=== PATIENT | female | born 1985 | race Hispanic/Latino ===

== ENCOUNTER → 2023-12-27 | Emergency (ER) | payer SELFPAY ==
--- NOTE | 2023-12-27 19:57 | RAD REPORT ---
EXAM DESCRIPTION: US - Transvaginal OB - 12/27/2023 7:37 pm CLINICAL HISTORY: with vaginal bleeding COMPARISON: None FINDINGS: The uterus measures 12 x 5 x 7 centimeters. A normal appearing gestational sac is present within the endometrium. Within this is a yolk sac and pole with a crown-rump length 2.5 centi meters. Cardiac activity 171 beats per minute 1.1 cm subchorionic bleed Right and left ovary not seen secondary to overlying bowel gas The right and left adnexa are unremarkable No significant free fluid is seen. IMPRESSION: Single live intrauterine with an estimated gestational age 9 weeks 2 days ARNIE 07/29/2024
[2023-12-27 19:59] LABS: Absolute Lymphocytes (CBC) 2.6 K/uL (0.7-4.9); Hematocrit 38.5 % (36.0-45.0); Lymphocytes % 25.1 % (15.3-44.8); MCV 91.6 fL (80-100); MPV 10.3 fL (7.6-11.3); Platelets 181 thou/uL (152-406); RBC Red Blood Cell Count 4.21 M/uL (3.86-4.86)
[2023-12-27 20:33] LABS: Potassium 3.8 mEq/L (3.5-5.1)
--- NOTE | 2023-12-27 21:05 | ER ---
Nurse's Notes [facility] Name: Tiffanie Aguilera Age: 38 yrs Sex: Female : 1985 Arrival Date: 12/27/2023 Time: 17:55 Bed 12 Private MD: Diagnosis: subchorionic hemorrhage Presentation: 12/27 18:17 Chief complaint: Patient states: Approximately 6 weeks , had positive home nj1 test. Has vaginal bleeding, onset 1 hour ago. Denies pain. Coronavirus screen: Vaccine status: Patient reports receiving the 2nd dose of the covid vaccine. Ebola Screen: Patient denies travel to an Ebola-affected area in the 21 days before illness onset. Initial Sepsis Screen: Does the patient meet any 2 criteria? No. Patient's initial sepsis screen is negative. Does the patient have a suspected source of infection? No. Patient's initial sepsis screen is negative. Risk Assessment: Do you want to hurt yourself or someone else? Patient reports no desire to harm self or others. Onset of symptoms was December 27, 2023 at 17:30. 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 - Social history:: Smoking status: Patient denies any tobacco usage or history of. Screenin:12 [facility] ED Fall Risk Assessment (Adult) History of falling in the last 3 months, jb4 including since admission No falls in past 3 months (0 pts) Confusion or Disorientation No (0 pts). Abuse screen: Denies threats or abuse. Nutritional screening: No deficits noted. Tuberculosis screening: No symptoms or risk factors identified. Assessment: 20:00 General: Appears in no apparent distress. comfortable. Pain: Denies pain. Neuro: Level jb4 of Consciousness is awake, alert, obeys commands, Oriented to person, place, time, situation. Cardiovascular: Patient's skin is warm and dry. Respiratory: Airway is patent Respiratory effort is even, unlabored, Respiratory pattern is regular, symmetrical. GI: No signs and/or symptoms were reported involving the gastrointestinal system. : Reports discharge, from vagina that is bloody. EENT: EENT: No signs and/or symptoms were reported regarding the EENT system. Derm: Skin is intact, Skin is pink, warm \T\ dry. Musculoskeletal: Circulation, motion, and sensation intact. Range of motion: intact in all extremities. 21:12 Reassessment: Patient appears in no apparent distress at this time. Patient and/or jb4 family updated on plan of care and expected duration. Pain level reassessed. Patient is alert, oriented x 3, equal unlabored respirations, skin warm/dry/pink. Vital Signs: 18:17 BP 132 / 103; Pulse 88; Resp 18; Temp 98.5; Pulse Ox 100% ; Weight 81.65 kg; Height 5 nj1 ft. 1 in. ; 18:17 Body Mass Index 33.98 (81.65 kg, 155 cm) nj1 ED Course: 18:00 Patient arrived in ED. mg5 18:01 Dione Danielle PA-C is PHCP. sb4 18:01 Magno Edgar MD is Attending Physician. sb4 18:20 Triage completed. nj1 18:20 Arm band placed on left wrist. nj1 19:35 Inserted saline lock: 20 gauge in right antecubital area, using aseptic technique. nj1 Blood collected. 19:39 US Transvaginal Ob In Process Unspecified. EDMS 20:05 Attending Physician role handed off by Magno Edgar MD ec2 20:05 Zheng Moreno MD is Attending Physician. ec2 20:11 Eusebio Duran, BISHOP is Primary Nurse. bp 21:12 Patient has correct armband on for positive identification. Bed in low position. Call jb4 light in reach. Side rails up X 1. 21:12 No provider procedures requiring assistance completed. IV discontinued, intact, jb4 bleeding controlled, No redness/swelling at site. Pressure dressing applied. Administered Medications: No medications were administered Outcome: 21:05 Discharge ordered by . ec2 21:12 Discharged to home ambulatory, jb4 21:12 Condition: stable 21:12 Discharge instructions given to patient, Instructed on discharge instructions, follow up and referral plans. Demonstrated understanding of instructions, follow-up care, 21:13 Patient left the ED. jb4 Signatures: Dispatcher [employer] Alen Elam RN RN jb4 Eusebio Duran, RN RN Dione Hector, PA-C PA-C sb4 Linda Lance RN RN [email or web address] Ashley Middleton mg5 Zheng Moreno MD MD ec2
--- NOTE | 2023-12-27 21:05 | EDPHYS ---
Physician Documentation [facility] Name: Tiffanie Aguilera Age: 38 yrs Sex: Female : 1985 Arrival Date: 12/27/2023 Time: 17:55 Bed 12 Private MD: ED Physician Zheng Moreno HPI: 12/27 18:25 This 38 yrs old Female presents to ER via Ambulatory with complaints of sb4 vaginal bleeding, 6 weeks . 18:25 The patient presents to the emergency department with vaginal bleeding, that is sb4 moderate. The estimated gestational age is 6 weeks. course: care: none, Leakage of Fluid: none appreciated, Ultrasound: the patient has not had an ultrasound, Risk/complications: no obvious risks or complications are appreciated. Previous pregnancies: in previous pregnancies patient has had. Associated signs and symptoms: Pertinent positives: vaginal bleeding, Pertinent negatives: abdominal pain, fever, ruptured membranes, vaginal discharge. The patient has not experienced similar symptoms in the past. The patient has not recently seen a physician. 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 no sb4 care. 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 - Social history:: Smoking status: Patient denies any tobacco usage or history of. ROS: 18:25 Constitutional: Negative for fever, chills, and weight loss, sb4 18:25 : Positive for vaginal bleeding, 18:25 All other systems are negative, Exam: 18:25 Constitutional: This is a well developed, well nourished patient who is awake, alert, sb4 and in no acute distress. Head/Face: Normocephalic, atraumatic. Eyes: Extra-ocular motions intact. Periorbital areas with no swelling, redness, or edema. ENT: Mucous membranes moist. Cardiovascular: Regular rate and rhythm with a normal S1 and S2. Respiratory: Lungs have equal breath sounds bilaterally, clear to auscultation and percussion. No rales, rhonchi or wheezes noted. No increased work of breathing, no retractions or nasal flaring. Abdomen/GI: Soft, non-tender, no distension. Skin: Warm, dry with normal turgor. Normal color with no rashes, no lesions, and no evidence of cellulitis. MS/ Extremity: Pulses equal, no cyanosis. Neurovascular intact. Full, normal range of motion. Neuro: Awake and alert, GCS 15, oriented to person, place, time, and situation. Motor strength 5/5 in all extremities. Sensory grossly intact. Vital Signs: 18:17 BP 132 / 103; Pulse 88; Resp 18; Temp 98.5; Pulse Ox 100% ; Weight 81.65 kg; Height 5 nj1 ft. 1 in. ; 18:17 Body Mass Index 33.98 (81.65 kg, 155 cm) nj1 MDM: 18:07 Patient medically screened. sb4 18:25 Differential diagnosis: threatened Ab, inevitable Ab, ectopic , IUP, menstrual sb4 cycle, ovarian cyst. 20:13 Data reviewed: vital signs. Transition of care: Care assumed from Dione Danielle PA-C. ec2 20:24 ED course: Patient signed out to me, in brief patient arrives today for vaginal ec2 bleeding in the setting of . Ultrasound completed that shows single live IUP with 9-week and 2-week day . Plan is to follow-up lab test and reassess the patient. . 20:41 ED course: Metabolic profile reassuring, hCG level at 55,000, patient is Rh+. Will ec2 defer RhoGAM shot given Rh status. Will discharge home. Patient without any urinary complaints to indicate obtaining UA. Return precautions given. . 12/27 18:24 Order name: Basic Metabolic Panel; Complete Time: 20:40 sb4 12/27 18:24 Order name: CBC with Diff; Complete Time: 20:23 sb4 12/27 18:24 Order name: Quantitative Hcg; Complete Time: 20:40 sb4 12/27 19:46 Order name: Rh Typing; Complete Time: 20:40 sb4 12/27 18:24 Order name: US Transvaginal Ob; Complete Time: 20:00 sb4 12/27 18:24 Order name: IV Saline Lock; Complete Time: 20:06 sb4 12/27 18:24 Order name: Labs collected and sent; Complete Time: 20:06 sb4 Administered Medications: No medications were administered Disposition: 20:43 I agree with the assessment and plan of care. I reviewed the patient's care provided by ec2 Advanced Practice Provider \T\ agree w/ the diagnosis \T\ care plan. I personally saw the pt \T\ performed a substantive portion of the visit, incldng all aspects of the (History/Exam/Medical Decision Making). Disposition Summary: 12/27/23 21:05 Discharge Ordered Notes: Location: Home ec2 Problem: new ec2 Symptoms: are unchanged ec2 Condition: Stable ec2 Diagnosis - subchorionic hemorrhage ec2 Followup: sb4 - With: Private Physician - When: 48 Hours - Reason: Further diagnostic work-up, Repeat Beta-HCG (48 Hours) Discharge Instructions: - Discharge Summary Sheet sb4 - Subchorionic Hematoma sb4 Forms: - Medication Reconciliation Form ec2 - Thank You Letter ec2 - Antibiotic Education ec2 - Prescription Opioid Use ec2 - Patient Portal Instructions ec2 - Leadership Thank You Letter ec2 Signatures: Dispatcher [employer] Dione Dalal PA-C PA-C sb4 Linda Lance RN RN nj1 Zheng Moreno MD MD ec2 Corrections: (The following items were deleted from the chart) 18:26 18:25 2, Full Term 1, Premature 0, 0, Living 1, LMP 10/24/2023, sb4 unknown sb4
[2023-12-27 21:28] VITALS: BP 132/103; TEMP 98.5; O2SAT 100
== END ==
LOC: ER 17:55
DX: O20.8 Other hemorrhage in early pregnancy (principal); Z3A.09 9 weeks gestation of pregnancy
CPT/HCPCS: 36415; 76817; 80048; 84702; 85025; 86901; 99283

== ENCOUNTER 2024-05-07 17:30 | Emergency (ER) | payer SELFPAY ==
[2024-05-07 18:25] LABS: Absolute Eosinophils 0.4 K/uL (0-0.5); Absolute Monocytes 0.6 K/uL (0.1-1.3); Basophils % 0.5 % (0-1.3); Eosinophils % 3.9 % (0-4.4); Hematocrit 35.8 % (36.0-45.0); Hemoglobin 11.9 g/dL (12.0-15.0); MCH 31.4 pg (27.0-35.0); MCHC 33.3 g/dL (32.0-36.0); MCV 94.3 fL (80-100); MPV 9.8 fL (7.6-11.3); Monocytes % 6.9 % (3.3-12.3); Neutrophils % 66.7 % (41.7-73.7); Platelets 159 thou/uL (152-406); RBC Red Blood Cell Count 3.79 M/uL (3.86-4.86)
[2024-05-07] MEDS ORDERED: ACETAMINOPHEN 500 MG TAB ONE (18:34)
[2024-05-07 18:55] LABS: Anion Gap 10.6 mEq/L (5.0-15.0); Potassium 3.6 mEq/L (3.5-5.1)
--- NOTE | 2024-05-07 19:15 | RAD REPORT ---
EXAM DESCRIPTION: US - OB Limited - 05/07/2024 6:36 pm CLINICAL HISTORY: Abdominal pain. FINDINGS: Single live intrauterine in cephalic presentation. Cardiac activity 141 beats per minute. Normal amniotic fluid volume Posterior placenta. No subchorionic/retroplacental bleed. Cervix 4.2 centimeters. The right and left adnexa unremarkable Femur length 5.5 centimeters 29 weeks 2 days +/-5 days IMPRESSION: Single live intrauterine in cephalic presentation Limited estimated gestational age by current ultrasound 29 weeks 2 days ARNIE 07/21/2024
[2024-05-07 19:24] LABS: Sqamous Epithelial <5 /HPF (None Seen); Urine Bacteria <20 /HPF (<20); Urine Bilirubin NEGATIVE (Negative); Urine Blood Negative (Negative); Urine Clarity Clear (Clear); Urine Color Light-Yellow (Yellow); Urine Culture Reflex Order NOT NEEDED; Urine Glucose NEGATIVE (Negative); Urine Ketones NEGATIVE (Negative); Urine Microscopic Reflex YN ORDER UMIC; Urine Mucus Slight /HPF (None Seen); Urine Nitrite NEGATIVE (Negative); Urine Protein NEGATIVE (Negative); Urine RBC None Seen /HPF (None Seen); Urine Urobilinogen Normal (Normal); Urine WBC <5 /HPF (<5)
--- NOTE | 2024-05-07 20:00 | ER ---
Nurse's Notes [facility] Name: Tiffanie Aguilera Age: 38 yrs Sex: Female : 1985 Arrival Date: 05/07/2024 Time: 17:30 Bed 5 Private MD: Diagnosis: Lower abdominal pain, unspecified;Encounter for supervision of normal , unspecified, third trimester;Round ligament pain Presentation: 05/07 17:58 Chief complaint: Patient states: 24 wks . Lower abdominal and left nj1 lower/buttock pain for 2 days. No vaginal bleeding. No vaginal discharge. 17:58 Coronavirus screen: At this time, the client does not indicate any symptoms associated nj with coronavirus-19. Ebola Screen: No symptoms or risks identified at this time. Initial Sepsis Screen: Does the patient meet any 2 criteria? HR > 90 bpm. No. Patient's initial sepsis screen is negative. Does the patient have a suspected source of infection? No. Patient's initial sepsis screen is negative. Risk Assessment: Do you want to hurt yourself or someone else? Patient reports no desire to harm self or others. Onset of symptoms was May 2024. 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 - Infectious Disease History:: Denies. - Social history:: Smoking status: Patient denies any tobacco usage or history of. Screenin:29 [facility] ED Fall Risk Assessment (Adult) History of falling in the last 3 months, [facility] including since admission No falls in past 3 months (0 pts) Confusion or Disorientation No (0 pts) Intoxicated or Sedated No (0 pts) Impaired Gait No (0 pts) Mobility Assist Device Used No (0 pt) Altered Elimination No (0 pt) Score/Fall Risk Level 0 - 2 = Low Risk Oriented to surroundings, Maintained a safe environment, Hourly rounding (assess needs \T\ fall precautionary measures) done. Abuse screen: Denies threats or abuse. Denies injuries from another. Nutritional screening: No deficits noted. Tuberculosis screening: No symptoms or risk factors identified. Assessment: 18:00 General: Appears in no apparent distress. comfortable, Behavior is calm, cooperative, nj1 appropriate for age. 18:00 Pain: Complains of pain in left lower back and abdomen Pain currently is 5 out of 10 on nj1 a pain scale. Neuro: Level of Consciousness is awake, alert, obeys commands, Oriented to person, place, time, situation. Cardiovascular: Patient's skin is warm and dry. Respiratory: Airway is patent Respiratory effort is even, unlabored. GI: Reports lower abdominal pain. : Denies vaginal bleeding. 18:53 Reassessment: Patient appears in no apparent distress at this time. Patient and/or nj1 family updated on plan of care and expected duration. Pain level reassessed. Patient is alert, oriented x 3, equal unlabored respirations, skin warm/dry/pink. 19:00 General: Appears in no apparent distress. comfortable, well groomed, well developed, me1 well nourished, Behavior is calm, cooperative, appropriate for age. Pain: Complains of pain in abdomen and suprapubic area Pain radiates to buttocks and left lower back Pain currently is 2 out of 10 on a pain scale. Quality of pain is described as tender, Pain began Is continuous. Neuro: Level of Consciousness is awake, alert, obeys commands, Oriented to person, place, time, situation, Appropriate for age. Cardiovascular: Patient's skin is warm and dry. Respiratory: Airway is patent Respiratory effort is even, unlabored, Respiratory pattern is regular, symmetrical. GI: Bowel sounds present X 4 quads. Abd is non tender Reports lower abdominal pain. : Denies vaginal bleeding. EENT: No signs and/or symptoms were reported regarding the EENT system. Derm: Skin is intact, is healthy with good turgor, Skin is pink, warm \T\ dry. Musculoskeletal: No signs and/or symptoms reported regarding the musculoskeletal system. 20:24 GI: Bowel sounds present X 4 quads. Abd is non tender X 4 quads. me1 Vital Signs: 17:58 BP 135 / 85; Pulse 106; Resp 18; Temp 98.9(O); Pulse Ox 97% on R/A; Weight 90 kg (R); nj1 Height 5 ft. 1 in. ; Pain 5/10; 18:53 BP 118 / 74; Pulse 87; Resp 18; Pulse Ox 99% ; nj1 19:15 BP 131 / 82; Pulse 79; Resp 18; Pulse Ox 97% ; me1 20:01 BP 120 / 78; Pulse 80; Resp 18; Temp 98; Pulse Ox 99% ; me1 17:58 Body Mass Index 37.46 (90.00 kg, 155 cm) nj1 17:58 Pain Scale: Adult nj1 Vitals: 18:29 Heart Tones 141. wi1 ED Course: 17:34 Patient arrived in ED. im 17:35 Dione Danielle PA-C is PHCP. sb4 17:35 Zheng Moreon MD is Attending Physician. sb4 17:51 Linda Lance, RN is Primary Nurse. nj1 18:15 Inserted saline lock: 20 gauge in right antecubital area, using aseptic technique. nj1 Blood collected. 18:27 Triage completed. nj1 18:27 Arm band placed on. nj1 18:29 Patient has correct armband on for positive identification. Bed in low position. Call [facility] light in reach. Adult w/ patient. Provided Education on: call light, fall precautions. 18:38 US OB Limited In Process Unspecified. EDAK 19:00 Report given to Claudette ALAS. nj1 20:23 No provider procedures requiring assistance completed. Patient did not have IV access me1 during this emergency room visit. intact, bleeding controlled, No redness/swelling at site. Pressure dressing applied. Administered Medications: 18:37 Drug: Acetaminophen PO 1000 mg PO once Route: PO; nj1 20:19 Follow up: Response: No adverse reaction; Pain is decreased me1 Medication: 20:24 VIS not applicable for this client. me1 Outcome: 19:59 Discharge ordered by . sb4 20:24 Discharged to home ambulatory, with significant other, me1 20:24 Condition: stable 20:24 Instructed on discharge instructions, follow up and referral plans. Demonstrated understanding of instructions, follow-up care, 20:24 Patient left the ED. me1 Signatures: Dispatcher [employer] EDAK Dione Danielle PA-C PA-C sb4 Linda Lance, RN RN [facility] Ca Bedolla Eddleman, Claudette, RN RN me1
--- NOTE | 2024-05-07 20:00 | EDPHYS ---
Physician Documentation [facility] Name: Tiffanie Aguilera Age: 38 yrs Sex: Female : 1985 Arrival Date: 05/07/2024 Time: 17:30 Bed 5 Private MD: ED Physician Zheng Moreno HPI: 05/07 18:04 This 38 yrs old Female presents to ER via Unassigned with complaints of 23 sb4 Weeks , Abdominal Cramping, Low Back Pain. 18:04 The patient presents to the emergency department with abdominal pain, of the suprapubic sb4 area, that started 2 day(s) ago. The estimated gestational age is 23 weeks. course: care: private OB physician, the patient's last check was April 15, 2024, Leakage of Fluid: none appreciated, Ultrasound: the patient had an ultrasound, which was normal, Risk/complications: no obvious risks or complications are appreciated. The patient has not experienced similar symptoms in the past. The patient has not recently seen a physician. 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 - Infectious Disease History:: Denies. - Social history:: Smoking status: Patient denies any tobacco usage or history of. ROS: 18:04 Constitutional: Negative for fever, chills, and weight loss, sb4 18:04 Abdomen/GI: Positive for abdominal pain, 18:04 Back: Positive for pain at rest, 18:04 : Positive for 18:04 All other systems are negative, Exam: 18:04 Constitutional: This is a well developed, well nourished patient who is awake, alert, sb4 and in no acute distress. Head/Face: Normocephalic, atraumatic. Eyes: Extra-ocular motions intact. Periorbital areas with no swelling, redness, or edema. ENT: Mucous membranes moist. Cardiovascular: Regular rate and rhythm with a normal S1 and S2. Respiratory: Lungs have equal breath sounds bilaterally, clear to auscultation and percussion. No rales, rhonchi or wheezes noted. No increased work of breathing, no retractions or nasal flaring. Abdomen/GI: Soft, non-tender, no distension. Skin: Warm, dry with normal turgor. Normal color with no rashes, no lesions, and no evidence of cellulitis. MS/ Extremity: Pulses equal, no cyanosis. Neurovascular intact. Full, normal range of motion. Neuro: Awake and alert, GCS 15, oriented to person, place, time, and situation. Motor strength 5/5 in all extremities. Sensory grossly intact. Vital Signs: 17:58 BP 135 / 85; Pulse 106; Resp 18; Temp 98.9(O); Pulse Ox 97% on R/A; Weight 90 kg (R); nj1 Height 5 ft. 1 in. ; Pain 5/10; 18:53 BP 118 / 74; Pulse 87; Resp 18; Pulse Ox 99% ; nj1 19:15 BP 131 / 82; Pulse 79; Resp 18; Pulse Ox 97% ; me1 20:01 BP 120 / 78; Pulse 80; Resp 18; Temp 98; Pulse Ox 99% ; me1 17:58 Body Mass Index 37.46 (90.00 kg, 155 cm) nj1 17:58 Pain Scale: Adult nj1 MDM: 17:50 Patient medically screened. sb4 19:59 Data reviewed: vital signs, nurses notes, lab test result(s), radiologic studies, and sb4 as a result, I will discharge patient. Counseling: I had a detailed discussion with the patient and/or guardian regarding the historical points, exam findings, and any diagnostic results supporting the discharge/admit diagnosis, lab results, radiology results, the need for outpatient follow up, an OB/Gyne specialist, to return to the emergency department if symptoms worsen or persist or if there are any questions or concerns that arise at home. 05/07 18:04 Order name: Basic Metabolic Panel; Complete Time: 18:57 sb4 05/07 18:04 Order name: CBC with Diff; Complete Time: 18:29 sb4 05/07 18:04 Order name: Quantitative Hcg; Complete Time: 18:57 sb4 05/07 18:04 Order name: Urinalysis w/ reflexes; Complete Time: 19:26 sb4 05/07 18:04 Order name: US OB Limited; Complete Time: 19:16 sb4 05/07 18:04 Order name: IV Saline Lock; Complete Time: 18:30 sb4 05/07 18:04 Order name: Labs collected and sent; Complete Time: 18:30 sb4 Administered Medications: 18:37 Drug: Acetaminophen PO 1000 mg PO once Route: PO; nj1 20:19 Follow up: Response: No adverse reaction; Pain is decreased me1 Disposition Summary: 05/07/24 19:59 Discharge Ordered Notes: Location: Home sb4 Problem: new sb4 Symptoms: are unchanged sb4 Condition: Stable sb4 Diagnosis - Lower abdominal pain, unspecified sb4 - Encounter for supervision of normal , unspecified, third trimester sb4 - Round ligament pain sb4 Followup: sb4 - With: Private Physician - When: 1 week - Reason: Recheck today's complaints, Re-evaluation by your physician Discharge Instructions: - Discharge Summary Sheet sb4 - Round Ligament Pain sb4 Forms: - Patient Portal Instructions sb4 - Leadership Thank You Letter sb4 Signatures: Dispatcher [employer] Dione Dalal PA-C PA-C sb4 Linda Lance, RN RN nj1 Claudette Johnson RN me1 Corrections: (The following items were deleted from the chart) 18:04 18:04 OB Limited+US.RAD.BRZ ordered. EDMS EDMS 18:30 18:04 Test, Urine+UC.LAB.BRZ ordered. EDMS EDMS
[2024-05-07 20:30] VITALS: O2SAT 99
[2024-05-07 20:51] VITALS: BP 120/78; TEMP 98
== END 2024-05-07 20:24 | disposition home or self-care (01) ==
LOC: ER 17:30
DX: O26.892 Other specified pregnancy related conditions, second trimester (principal); Z3A.23 23 weeks gestation of pregnancy
CPT/HCPCS: 36415; 76815; 80048; 81001; 84702; 85025; 99284